=== PATIENT | male | born 1965 | race Two or more races ===

== ENCOUNTER 2017-08-06 20:30 | Emergency (ER) | payer SELFPAY ==
[~2017-08-06] VITALS: Ht 175.3 cm; Wt 90.7 kg
[2017-08-06 21:23] LABS: Basophils # (auto) 0 uL; Basophils % (auto) 0.3 % (0.0-2.0); Eosinophils # (auto) 0 uL; Hematocrit 47.5 % (41.0-53.0); Lymphocytes # (auto) 0.6 uL; Lymphocytes % (auto) 4.6 % (10.0-50.0); Mean Corpuscular Hemoglobin 31.3 pg (28.0-32.0); Mean Corpuscular Hgb Conc. 33.7 g/dL (32.0-36.0); Mean Corpuscular Volume 92.8 fL (80.0-100.0); Monocytes # (auto) 0.2 uL; Neutrophils # (auto) 11.8 uL; Neutrophils % (auto) 93.1 % (37.0-80.0); Platelet Count (auto) 193 10^3/uL (140-450); Red Blood Cells 5.11 10^6/uL (4.5-5.90); Red Cell Distribution Width 13.6 % (11.8-14.3); White Blood Cell 12.7 10^3/uL (4.4-10.8)
[2017-08-06 21:43] LABS: BUN/Creatinine Ratio 9.8; Potassium 4.2 mmol/L (3.5-5.1)
[2017-08-06 21:46] LABS: Bilirubin, Total 0.7 mg/dL (0.2-1.0); Total Protein 8.2 g/dL (6.4-8.2)
[2017-08-07 01:33] VITALS: BP 124/80
[2017-08-07 04:53] LABS: Urine Bacteria NONE SEEN /hpf (None Seen); Urine Blood 3+ /uL (Negative); Urine Budding Yeast MANY /hpf (None Seen); Urine Mucus FEW (None Seen); Urine Specific Gravity 1.023 (1.001-1.035); Urine WBC 6 /hpf (0 - 3)
== END 2017-08-07 04:26 | disposition home or self-care (01) ==
LOC: ER 20:30
DX: R10.9 Unspecified abdominal pain (principal); Z53.21 Procedure and treatment not carried out due to patient leaving prior to being seen by health care provider
CPT/HCPCS: 36415; 74176; 80053; 81001; 82150; 83690; 85025

== ENCOUNTER 2020-08-10 03:41 | Emergency (ER) | payer BC ==
[~2020-08-10] VITALS: Ht 175.3 cm; Wt 90.7 kg
[2020-08-10 08:14] VITALS: BP 154/91
[2020-08-10] MEDS ORDERED: ceFAZolin 1GM/50ML 100 ML IV ONE (12:54)
== END 2020-08-10 09:20 | disposition home or self-care (01) ==
LOC: ER 03:44
DX: S61.032A Puncture wound without foreign body of left thumb without damage to nail, initial encounter (principal); L08.9 Local infection of the skin and subcutaneous tissue, unspecified; N18.6 End stage renal disease; Y93.89 Activity, other specified; Y92.89 Other specified places as the place of occurrence of the external cause; Y99.8 Other external cause status
CPT/HCPCS: 26010; 99282; J0690; 10060